=== PATIENT | female | born 1940 | race African-American/Black ===

== ENCOUNTER 2023-07-10 18:56 | Inpatient (IN) | payer MEDICARE ==
[~2023-07-10] VITALS: Ht 160 cm; Wt 52.2 kg
[~2023-07-10 18:56] MED LIST: ALBU6.7H3 INH; BENZ100C86 MT; GABA-532 PO; GUAI600T44 MT; MED4 MT; METF750T46 PO
[2023-07-10] MEDS ORDERED: MORPHINE SULFATE 2 MG/ML CPJ (NOT FOR IM USE) IV ONE (19:30)
[2023-07-10 19:36] LABS: ALANINE AMINOTRANSFERASE 7 IU/L (10-49); ASPARTATE AMINOTRANSFERASE 18 IU/L (<34); BASOPHILS % 0.8 % (0.0-2.0); BILIRUBIN TOTAL 0.3 mg/dL (0.1-1.0); CALCIUM 9.5 mg/dL (8.7-10.4); CARBON DIOXIDE 31 mEq/L (21-32); CHLORIDE 102 mEq/L (98-107); EOSINOPHILS % 1.3 % (0.0-5.0); GLUCOSE 145 mg/dL (70-105); HEMATOCRIT. 38.2 % (36.0-48.0); HEMOGLOBIN. 12.4 g/dL (12.0-16.0); LYMPHOCYTES % 16.9 % (20.0-50.0); MEAN CORPUSCULAR HEMOGLOBIN 29.9 pg (28.0-32.0); MEAN CORPUSCULAR HGB CONC 32.5 g/dL (31.0-37.0); MEAN CORPUSCULAR VOLUME 92.2 fL (81.0-99.0); MEAN PLATELET VOLUME 7.8 fl (7.4-10.4); PLATELET 266 x1000/uL (130-400); POTASSIUM 4.3 mEq/L (3.5-5.1); PROTEIN TOTAL 6.9 g/dL (6.0-8.3); RED BLOOD CELL COUNT 4.15 mill/uL (4.2-5.4); RED CELL DISTRIBUTION WIDTH 14.4 % (11.6-14.6); SODIUM 138 mEq/L (136-145); UREA NITROGEN BLOOD 14 mg/dL (9-23); WHITE BLOOD COUNT 6.4 x1000/uL (4.5-11.0)
[2023-07-10 21:29] LABS: TROPONIN I HIGH SENSITIVITY 16 ng/L (3.0-34)
[2023-07-10] MEDS ORDERED: CLONIDINE 0.1MG TABLET PO PRN (21:45)
[2023-07-10] MEDS ORDERED: IPRATROPIUM/ALBUTEROL 0.5-3(2.5)MG/3ML NEB HHN PRN (21:45)
[2023-07-10] MEDS ORDERED: HYDROCODONE/ACETAMINOPHEN 5/325MG TABLET PO PRN (21:45)
[2023-07-10] MEDS ORDERED: MAGNESIUM/ALUMINUM HYDROXIDE/SIMETHICONE 30ML UDC PO PRN (21:45)
[2023-07-10] MEDS ORDERED: DEXTROSE 50% WATER 50ML SYRINGE IV PRN (21:45)
[2023-07-10] MEDS ORDERED: ACETAMINOPHEN 325MG TABLET PO PRN ×2 (21:45)
[2023-07-10] MEDS ORDERED: ONDANSETRON HCL 4MG/2ML INJ IV PRN (21:45)
[2023-07-10] MEDS ORDERED: DOCUSATE SODIUM 100MG CAPSULE PO PRN (21:45)
[2023-07-10] MEDS ORDERED: GUAIFENESIN 200MG/10ML SUGAR FREE UDC PO PRN (21:45)
[2023-07-10] MEDS ORDERED: INSU3INS8 SUBCUT (22:04)
[2023-07-10] MEDS ORDERED: BENZ200C52 PO (22:04)
[2023-07-10] MEDS ORDERED: ALBU18HF2 (22:04)
[2023-07-10] MEDS ORDERED: HYDR-3782 PO (22:04)
[2023-07-10] MEDS ORDERED: P50 PO (22:04)
[2023-07-10 23:05] LABS: CLARITY URINE CLEAR (CLEAR); COLOR URINE YELLOW (YELLOW); GLUCOSE URINE NEGATIVE (NEGATIVE); KETONES URINE NEGATIVE (NEGATIVE); LEUKOCYTE ESTERASE URINE 1+ (NEGATIVE); NITRITE URINE NEGATIVE (NEGATIVE); OCCULT BLOOD URINE NEGATIVE (NEGATIVE); PROTEIN URINE NEGATIVE (NEGATIVE); SPECIFIC GRAVITY URINE 1.013 (1.005-1.030)
[2023-07-10 23:18] LABS: *AMPHETAMINES SCREEN URINE NEGATIVE (NEGATIVE); *BARBITURATES SCREEN URINE NEGATIVE (NEGATIVE); *BENZODIAZEPINES SCREEN URINE NEGATIVE (NEGATIVE); *COCAINE SCREEN URINE NEGATIVE (NEGATIVE); CANNABINOID URINE SCREEN NEGATIVE (NEGATIVE); ECSTASY MDMA SCREEN URINE NEGATIVE (NEGATIVE); METHADONE URINE SCREEN Neg (NEGATIVE); OPIATES URINE SCREEN PRESUMPTIVE POSITIVE (NEGATIVE); PHENCYCLIDINE URINE SCREEN NEGATIVE (NEGATIVE)
[2023-07-10 23:19] LABS: BACTERIA URINE 1+; RBC URINE 0-2 /hpf (0-2); SQUAMOUS EPITHELIAL CELL URINE FEW /lpf (RARE/1+)
[2023-07-10 23:20] LABS: WBC URINE 15-25 /hpf (0-2)
[2023-07-11] MEDS ORDERED: NITROGLYCERIN 0.4MG TABLET SL SL PRN
[2023-07-11] MEDS ORDERED: KETOROLAC 30MG/ML VIAL IV PRN
[2023-07-11] MEDS ORDERED: CEFTRIAXONE 1GM PREMIX 50 ML IV SCH (00:15)
[2023-07-11] MEDS ORDERED: SODIUM CHLORIDE 0.9% 500 ML IV ONE (00:30)
[2023-07-11] MEDS ORDERED: MIDODRINE HCL 2.5MG TABLET PO NR (00:30)
[2023-07-11] MEDS ORDERED: GABAPENTIN 300MG CAPSULE PO NR (00:45)
[2023-07-11 01:21] LABS: CREATINE KINASE MB FRACTION 2.2 ng/mL (0.5-3.6)
[2023-07-11 04:40] LABS: BASOPHILS % 0.4 % (0.0-2.0); EOSINOPHILS % 0.1 % (0.0-5.0); HEMATOCRIT. 32.7 % (36.0-48.0); HEMOGLOBIN. 10.8 g/dL (12.0-16.0); LYMPHOCYTES % 9.8 % (20.0-50.0); MEAN CORPUSCULAR HEMOGLOBIN 29.8 pg (28.0-32.0); MEAN CORPUSCULAR HGB CONC 32.8 g/dL (31.0-37.0); MEAN CORPUSCULAR VOLUME 90.9 fL (81.0-99.0); MEAN PLATELET VOLUME 7.5 fl (7.4-10.4); MONOCYTES % 10.4 % (2.0-8.0); NEUTROPHILS % 79.3 % (40.0-76.0); PLATELET 235 x1000/uL (130-400); RED CELL DISTRIBUTION WIDTH 14.6 % (11.6-14.6); WHITE BLOOD COUNT 7.8 x1000/uL (4.5-11.0)
[2023-07-11 04:56] LABS: ALANINE AMINOTRANSFERASE < 7 IU/L (10-49); ALBUMIN 3.5 g/dL (3.2-4.8); ASPARTATE AMINOTRANSFERASE 12 IU/L (<34); BILIRUBIN TOTAL 0.5 mg/dL (0.1-1.0); CALCIUM 8.7 mg/dL (8.7-10.4); CARBON DIOXIDE 29 mEq/L (21-32); CHLORIDE 105 mEq/L (98-107); CHOLESTEROL 114 mg/dL (<200); CREATINE KINASE 36 IU/L (34-145); CREATINE KINASE MB FRACTION 2.3 ng/mL (0.5-3.6); CREATININE 0.8 mg/dL (0.6-1.0); GLUCOSE 142 mg/dL (70-105); HDL CHOLESTEROL 55 mg/dL (>65); LDL CHOLESTEROL 54 mg/dL (5-100); POTASSIUM 3.9 mEq/L (3.5-5.1); PROTEIN TOTAL 6.1 g/dL (6.0-8.3); SODIUM 138 mEq/L (136-145); THYROID STIMULATING HORMONE 1.56 uIU/mL (0.55-4.78); TRIGLYCERIDE 35 mg/dL (0-150); TROPONIN I HIGH SENSITIVITY 11 ng/L (3.0-34); UREA NITROGEN BLOOD 12 mg/dL (9-23)
[2023-07-11] MEDS: BLOOD SUGAR DIAGNOSTIC STRIP TEST SCH ×4 (06:30→20:59)
[2023-07-11] MEDS: INSULIN LISPRO 100 UNITS/ML SUBCUT SCH ×4 (07:00→21:00)
[2023-07-11] MEDS ORDERED: SERTRALINE HCL 100MG TABLET PO SCH (09:00)
[2023-07-11] MEDS: ENOXAPARIN 30MG/0.3ML SYR SUBCUT SCH (09:00)
[2023-07-11] MEDS ORDERED: CITRIC ACID/SODIUM CITRATE SOLN 15ML UDC PO SCH (09:00)
[2023-07-11] MEDS: PANTOPRAZOLE SODIUM 40 MG/VIAL IV SCH (09:22)
[2023-07-11 13:45] LABS: CREATINE KINASE MB FRACTION 2.3 ng/mL (0.5-3.6)
[2023-07-11 17:00] VITALS: BP 99/53; PULSE 77; RESP 18; TEMP 97.5
[2023-07-11 20:00] VITALS: BP 117/60; PULSE 85; RESP 18; TEMP 97.6
[2023-07-11 21:53] LABS: CREATINE KINASE 40 IU/L (34-145); TROPONIN I HIGH SENSITIVITY 18 ng/L (3.0-34)
[2023-07-12] VITALS (8 sets, daily range): BP systolic 102–141; BP diastolic 47–68; PULSE 77–99; RESP 18–20; TEMP 97.8–98.6; O2SAT 84–96
[2023-07-12] MEDS: CEFTRIAXONE 1,000 MG in DEXTROSE 5% WATER 50 ML IV SCH (05:03)
[2023-07-12 06:41] LABS: BASOPHILS % 0.4 % (0.0-2.0); EOSINOPHILS % 0.7 % (0.0-5.0); HEMATOCRIT. 29.6 % (36.0-48.0); HEMOGLOBIN. 9.8 g/dL (12.0-16.0); LYMPHOCYTES % 13.7 % (20.0-50.0); MEAN CORPUSCULAR HEMOGLOBIN 30.1 pg (28.0-32.0); MEAN CORPUSCULAR VOLUME 91.1 fL (81.0-99.0); MEAN PLATELET VOLUME 7.7 fl (7.4-10.4); NEUTROPHILS % 74.2 % (40.0-76.0); PLATELET 205 x1000/uL (130-400); RED BLOOD CELL COUNT 3.25 mill/uL (4.2-5.4); RED CELL DISTRIBUTION WIDTH 14.3 % (11.6-14.6); WHITE BLOOD COUNT 5.2 x1000/uL (4.5-11.0)
[2023-07-12 06:56] LABS: CALCIUM 8.9 mg/dL (8.7-10.4); CARBON DIOXIDE 28 mEq/L (21-32); CHLORIDE 107 mEq/L (98-107); CREATININE 0.7 mg/dL (0.6-1.0); GLUCOSE 116 mg/dL (70-105); POTASSIUM 3.8 mEq/L (3.5-5.1); SODIUM 140 mEq/L (136-145); UREA NITROGEN BLOOD 13 mg/dL (9-23)
[2023-07-12] MEDS: BLOOD SUGAR DIAGNOSTIC STRIP TEST SCH ×4 (07:04→20:25)
[2023-07-12] MEDS: INSULIN LISPRO 100 UNITS/ML SUBCUT SCH ×4 (07:05→20:24)
[2023-07-12 07:36] LABS: HEPATITIS B SURFACE ANTIGEN NEGATIVE (Negative); HEPATITIS C AB NON REACTIVE (Neg) (Negative)
[2023-07-12] MEDS: ENOXAPARIN 30MG/0.3ML SYR SUBCUT SCH (09:26)
[2023-07-12] MEDS: GABAPENTIN 300MG CAPSULE PO SCH ×3 (09:27→17:19)
[2023-07-12] MEDS: PANTOPRAZOLE SODIUM 40 MG/VIAL IV SCH (09:27)
[2023-07-12 10:01] LABS: FERRITIN 112 ng/mL (10-291); FOLIC ACID (FOLATE) SERUM 13.66 ng/mL (>5.38); VITAMIN B12 SERUM 785 pg/mL (211-911)
[2023-07-12] MEDS: AZITHROMYCIN 500 MG in DEXT 5% WATER 250 ML IV SCH (11:10)
[2023-07-12] MEDS: METHYLPREDNISOLONE SOD SUCC 40MG/ML (ACT-O-VIAL) IV SCH ×2 (11:10→18:01)
[2023-07-12 11:23] LABS: IRON 17 ug/dL (50-170); TOTAL IRON BINDING CAPACITY 431 ug/dl (250-425)
[2023-07-12] MEDS: CITRIC ACID/SODIUM CITRATE SOLN 30ML UDC PO SCH ×2 (12:27→17:19)
[2023-07-12] MEDS: IPRATROPIUM/ALBUTEROL 0.5-3(2.5)MG/3ML NEB HHN SCH ×2 (14:16→18:00)
[2023-07-13] VITALS (7 sets, daily range): BP systolic 94–133; BP diastolic 55–65; PULSE 68–90; RESP 17–19; TEMP 97–98.4; O2SAT 86
[2023-07-13] MEDS: METHYLPREDNISOLONE SOD SUCC 40MG/ML (ACT-O-VIAL) IV SCH ×2 (03:04→10:13)
[2023-07-13] MEDS: CEFTRIAXONE 1,000 MG in DEXTROSE 5% WATER 50 ML IV SCH (04:10)
[2023-07-13] MEDS: INSULIN LISPRO 100 UNITS/ML SUBCUT SCH ×2 (05:19→13:00)
[2023-07-13] MEDS: BLOOD SUGAR DIAGNOSTIC STRIP TEST SCH ×3 (05:22→16:33)
[2023-07-13 06:58] LABS: BASOPHILS % 0.1 % (0.0-2.0); HEMATOCRIT. 30.5 % (36.0-48.0); HEMOGLOBIN. 10.3 g/dL (12.0-16.0); LYMPHOCYTES % 7.1 % (20.0-50.0); MEAN CORPUSCULAR HEMOGLOBIN 30.2 pg (28.0-32.0); MEAN CORPUSCULAR HGB CONC 33.7 g/dL (31.0-37.0); MEAN CORPUSCULAR VOLUME 89.7 fL (81.0-99.0); MEAN PLATELET VOLUME 8.2 fl (7.4-10.4); NEUTROPHILS % 87.8 % (40.0-76.0); PLATELET 271 x1000/uL (130-400); RED CELL DISTRIBUTION WIDTH 14.1 % (11.6-14.6); WHITE BLOOD COUNT 6.8 x1000/uL (4.5-11.0)
[2023-07-13] MEDS: IPRATROPIUM/ALBUTEROL 0.5-3(2.5)MG/3ML NEB HHN SCH (07:50)
[2023-07-13 07:53] LABS: CALCIUM 9.5 mg/dL (8.7-10.4); CARBON DIOXIDE 26 mEq/L (21-32); CHLORIDE 105 mEq/L (98-107); GLUCOSE 195 mg/dL (70-105); POTASSIUM 4.1 mEq/L (3.5-5.1); SODIUM 139 mEq/L (136-145); UREA NITROGEN BLOOD 20 mg/dL (9-23)
[2023-07-13] MEDS: GABAPENTIN 300MG CAPSULE PO SCH ×2 (08:22→12:56)
[2023-07-13] MEDS: CITRIC ACID/SODIUM CITRATE SOLN 30ML UDC PO SCH ×2 (08:22→12:56)
[2023-07-13] MEDS: ENOXAPARIN 30MG/0.3ML SYR SUBCUT SCH (08:23)
[2023-07-13] MEDS ORDERED: FAMOTIDINE 20MG/2ML VIAL IV SCH (09:00)
[2023-07-13] MEDS: AZITHROMYCIN 500 MG in DEXT 5% WATER 250 ML IV SCH (10:13)
[2023-07-13] MEDS ORDERED: P50 MT (14:42)
[2023-07-13] MEDS ORDERED: LEVO750T68 MT (14:42)
[2023-07-14] MEDS ORDERED: AZITHROMYCIN 500 MG TABLET PO SCH (09:00)
== END 2023-07-13 17:10 | disposition home or self-care (01) | DRG 205 ==
LOC: ER 18:56 → MICUSO 21:02 → EDBEDREQ 21:18 → 5WST 07-11 18:13
PROVIDERS: ADMIT Internal Medicine; ATTEND Internal Medicine
DX: M94.0 Chondrocostal junction syndrome [Tietze] (principal); J18.9 Pneumonia, unspecified organism; J44.1 Chronic obstructive pulmonary disease with (acute) exacerbation; N39.0 Urinary tract infection, site not specified; J45.901 Unspecified asthma with (acute) exacerbation; E11.9 Type 2 diabetes mellitus without complications; D64.9 Anemia, unspecified; Z20.822 Contact with and (suspected) exposure to COVID-19; I10 Essential (primary) hypertension; M06.9 Rheumatoid arthritis, unspecified; E11.42 Type 2 diabetes mellitus with diabetic polyneuropathy; Z79.84 Long term (current) use of oral hypoglycemic drugs; Z79.899 Other long term (current) drug therapy; Z87.01 Personal history of pneumonia (recurrent); Z87.891 Personal history of nicotine dependence; Z90.710 Acquired absence of both cervix and uterus
CPT/HCPCS: 36415; 71045; 76604; 80048; 80053; 80061; 80305; 81003; 82550; 82553; 82607; 82728; 82746; 82962; 83036; 83540; 83550; 83880; 84145; 84443; 84484; 85025; 85379; 86705; 87077; 87186; 87340; 87426; 87804; 93005; 93306; 93880; 93970; 94640; 97165; 99285; C9113; J0456; J0696; J1650; J1815; J1885; J2270; J2920; J3490; J7060